=== PATIENT | female | born 1980 | race Caucasian/White ===

== ENCOUNTER 2018-02-10 22:03 | Emergency (ER) | payer MEDICAID ==
[2018-02-10] MEDS: Magnesium Sulfate 4 gm/100 ml 4 GM/100 ML BAG IV ONE (22:55)
[2018-02-10] MEDS: Lactated Ringer's 1,000 ML IV SCH (22:55)
--- NOTE | 2018-02-10 23:09 | OBHP ---
Datetime: 02/10/2018 22:54 IP Adm Impression: , intrauterine ; No Active Labor; Ruptured Membranes IP Admit Plan Other: Transfer to tertiary care center with Level III NICU Admit Comment, IP Provider: 37yo at 27.2wks GA presents to L_D c/o leakage of fluid _30-45 m inutes ago. Pt denies any VB or ctxs. Pt reports good FM. Pt denies F/C, abdominal pain, dysuria, vaginal discharge. No records available for review. PMHx Denies PSHx x 1 Meds vitamins, Pt denies any other medications NKDA OBHx: Fullterm x 2 2016 _24wk twin gestation due to labor SocHx Denies tob, alcohol, drugs PE: refer to physical exam findings A: 27.2wk PPROM, transverse presentation, prior ; Category I FHT. No evidence of activ e labor at this time. P: Discussed case with MFM, who recommended transfer to Level III NICU facility. Transfer process started. IV Ampicillin/Erythromycin Start MgSO4 tocolysis Start Beta Methasone steroid course I discussed plan with patient and all patient questions answered. Pelvic Type - PN: Adequate Extremities - PN: Normal Abdomen - PN: Normal Back - PN: Normal Breast - PN: Normal Lungs - PN: Normal Heart - PN: Normal Thyroid - PN: Normal Neurologic - PN: Normal HEENT - PN: Normal General - PN: Normal FHR - Baseline A Provider: 140s Amniotic Fluid Color, Provider: Clear Membranes, Provider: Ruptured Contraction Comments Provider: None Comments, ACOG Physical Exam: SSE: grossly ruptured with pooling clear fluid Cervix long/closed/posterior Bedside ultrasound: transverse presentation Pool Provider: Positive Vital Signs Provider: Reviewed; Within Normal Limits IP Chief Complaint: Suspected ruptured membranes NICHD Variability Prov Fetus A: Moderate 6-25bpm FHR Category Provider Fetus A: Category I NICHD Decel Fetus A IP Provider: None Dilatation, Provider: 0 Effacement, Provider: 0 Station, Provider: -4 Genitourinary Exam: Normal DTRs - PN: Normal
[2018-02-10] MEDS: Betamethasone Soluspan 30 mg/5mL Inj Susp IM ONE (23:12)
[2018-02-10] MEDS: AMPicillin 2 GM in Sodium Chloride 0.9% 100 ML IV ONE (23:20)
[2018-02-10 23:57] LABS: BASO # 0.1 K/uL (0.0-0.2); BASO % 0.6 % (0.0-2.0); EOS # 0.2 K/uL (0.0-0.7); EOS % 1.9 % (0.0-4.0); HEMOGLOBIN 11.6 g/dL (12.0-16.0); LYMPH % 20.1 % (20.0-40.0); MEAN CELL VOLUME 95.5 fl (81.0-99.0); MEAN CORPUSCULAR HEMOGLOBIN 33.1 pg (27.0-31.0); MEAN CORPUSCULAR HGB CONC 34.6 g/dL (33.0-37.0); MONO # 0.8 K/uL (0.0-0.8); MONO % 8.5 % (0.0-10.0); NEUT # 6.8 K/uL (1.8-7.0); NEUT % 68.9 % (50.0-75.0); RBC 3.5 Mil/uL (3.80-5.20); RED CELL DISTRIBUTION WIDTH 13.1 % (11.5-14.5); WHITE BLOOD COUNT 9.8 K/uL (4.8-10.8)
[2018-02-11 00:01] LABS: PROTHROMBIN TIME 10.5 Seconds (9.8-13.1)
[2018-02-11] MEDS: Azithromycin 500 MG in Sodium Chloride 0.9% 250 ML IVPB STA (00:21)
[2018-02-11 00:30] LABS: ALB/GLOB RATIO 1.1 (1.0-2.1); ALBUMIN 3.5 g/dL (3.5-5.0); ALT/SGPT 19 U/L (9-52); AST/SGOT 19 U/L (14-36); BLOOD UREA NITROGEN 4 mg/dl (7-17); CALCIUM 8.8 mg/dL (8.4-10.2); GFR NON-AFRICAN AMERICAN > 60
[2018-02-11] MEDS: AMPicillin 1 GM in Sodium Chloride 0.9% 100 ML IV SCH (00:58)
[2018-02-11 05:02] VITALS: BP 130/66; PULSE 94; RESP 20; TEMP 98.9; O2SAT 100
== END 2018-02-11 00:40 | disposition short-term general hospital (02) ==
LOC: H.EROB2 22:03
DX: O34.62 Maternal care for abnormality of vagina, second trimester (principal); N89.8 Other specified noninflammatory disorders of vagina; Z3A.27 27 weeks gestation of pregnancy
CPT/HCPCS: 80053; 85025; 85610; 85730; 96372; 96374; 96375; 99283; J0290; J0456; J0702; J3475; J7050; J7120

== ENCOUNTER 2018-09-16 10:25 | Emergency (ER) | payer MEDICAID ==
[2018-09-16 10:30] VITALS: TEMP 98
[2018-09-16 10:31] VITALS: BMI 36.5
[2018-09-16] MEDS ORDERED: Naproxen 500 MG TAB PO STA (10:58)
--- NOTE | 2018-09-16 11:04 | ED PDOC ---
History of Present Illness History of Present Illness: 38 years old female with no significant PMHx presents to ER for evaluation of bilateral ear pain and sore throat associated with back pain onset yesterday. Patient reports she has always had back problems. She states throat hurts with swallowing and reports taking NyQuil yesterday. Patient denies fever, sick contact, allergies or taking any medications today. PMD: Clinic HPI: Influenza Time Seen by Provider: 09/16/18 10:35 Chief Complaint: Flu-like Symptoms Chief Complaint (Provider): Flu-like Symptoms History Per: Patient Exam Limitations: no limitations Onset/Duration Of Symptoms: Days (x1) Symptoms include: sore throat, other (Ear pain). denies: fever Past Medical History Reviewed: Historical Data, Nursing Documentation, Vital Signs Vital Signs: Last Vital Signs Temp 98 F 09/16/18 10:29 Pulse 105 H 09/16/18 10:29 Resp 16 09/16/18 10:29 BP 127/69 09/16/18 10:29 Pulse Ox 98 09/16/18 10:29 Primary Care Provider: FAMILY PROVIDER,NO - Medical History PMH: No Chronic Diseases - Surgical History Surgical History: No Surg Hx - Family History Family History: States: Unknown Family Hx - Home Medications Home Medications: Ambulatory Orders Medication Instructions Recorded Vitamins [ 1 1 tab PO DAILY 03/27/15 Vitamin] Docusate Sodium/Sennosides A 1 tab PO HS #30 tab 12/27/15 [Senokot S 50 MG-8.6 MG] Ferrous Sulfate [Feosol] 325 mg PO DAILY #30 tab 12/27/15 Ibuprofen [Motrin Tab] 600 mg PO Q6H PRN #40 tab 12/27/15 oxyCODONE/Acetaminophen [Percocet 1 tab PO Q4 PRN #20 tab 12/27/15 5/325 mg Tab] Azithromycin [Zithromax Tri-Ernesto] 500 mg PO DAILY #3 tablet 06/26/16 Ibuprofen [Motrin] 600 mg PO Q6 PRN #20 tab 06/26/16 Amoxicillin [Amoxil 500 mg Cap] 500 mg PO BID #19 cap 09/16/18 Naproxen [Naprosyn] 500 mg PO BID PRN #15 tablet 09/16/18 - Allergies Allergies/Adverse Reactions: Allergies Allergy/AdvReac Type Severity Reaction Status Date / Time No Known Allergies Allergy Verified 09/16/18 10:43 Review of Systems ROS Statement: Except As Marked, All Systems Reviewed And Found Negative Constitutional: Negative for: Fever ENT: Positive for: Ear Pain (bilateral), Throat Pain Physical Exam - Reviewed Nursing Documentation Reviewed: Yes Vital Signs Reviewed: Yes - Physical Exam Appears: Positive for: Well, No Acute Distress Head Exam: Positive for: ATRAUMATIC, NORMOCEPHALIC Skin: Positive for: Normal Color, Warm, Dry Eye Exam: Positive for: Normal appearance ENT: Positive for: Tonsillar Exudate (Right), Other (Erythema to bilateral uvual midline) Neck: Positive for: Normal, Painless ROM, Supple Neurological/Psych: Positive for: Awake, Alert, Oriented (x3) Medical Decision Making Medical Decision Making: Time: 1047 Initial plan: --Urine --Amoxil 500 mg PO --Naproxen 500 mg PO Scribe Attestation: Documented by Darshana Dan acting as a scribe for Mayte Dickens MD. Provider Scribe Attestation: All medical record entries made by the Scribe were at my direction and personally dictated by me. I have reviewed the chart and agree that the record accurately reflects my personal performance of the history, physical exam, medical decision making, and the department course for this patient. I have also personally directed, reviewed, and agree with the discharge instructions and disposition. - ECG O2 Sat by Pulse Oximetry: 98 (RA) Pulse Ox Interpretation: Normal Disposition - Clinical Impression Clinical Impression: Pharyngitis - Disposition Referrals: [facility] [Outside] Prescriptions: Amoxicillin [Amoxil 500 mg Cap] 500 mg PO BID #19 cap Naproxen [Naprosyn] 500 mg PO BID PRN #15 tablet PRN Reason: Pain, Moderate (4-7) Instructions: Bacterial Upper Respiratory Infection, Adult Forms: [facility] (Turkish)
[2018-09-16] MEDS ORDERED: Naproxen 500 MG TAB PO ONE (11:26)
[2018-09-16 12:17] VITALS: BP 113/73; PULSE 91; RESP 18; O2SAT 99
== END 2018-09-16 12:32 | disposition home or self-care (01) ==
LOC: H.ER 10:25
DX: J02.9 Acute pharyngitis, unspecified (principal)